=== PATIENT | male | born 1940 | race Caucasian/White ===

== ENCOUNTER → 2017-04-09 | Outpatient (CLI) | payer OTHER, MEDICARE | LOC: CIMAGING 13:05 | PROVIDERS: ATTEND Internal Medicine | DX: M53.3 Sacrococcygeal disorders, not elsewhere classified (principal); M48.07 Spinal stenosis, lumbosacral region; M25.78 Osteophyte, vertebrae; N40.1 Benign prostatic hyperplasia with lower urinary tract symptoms; K59.00 Constipation, unspecified | CPT/HCPCS: 72192-PO ==

== ENCOUNTER → 2018-01-22 | Outpatient (CLI) | payer OTHER, MEDICARE | LOC: CIMAGING 13:33 | PROVIDERS: ATTEND Internal Medicine | DX: J98.11 Atelectasis (principal) | CPT/HCPCS: 36415-PO; 71046-PO; 80053-PO; 84443-PO; 85025-PO ==

== ENCOUNTER → 2018-05-22 | Outpatient (CLI) | payer OTHER, MEDICARE | LOC: BRMIMAGING 13:18 | PROVIDERS: ATTEND Internal Medicine | DX: Z13.820 Encounter for screening for osteoporosis (principal); M81.0 Age-related osteoporosis without current pathological fracture; S32.9XXA Fracture of unspecified parts of lumbosacral spine and pelvis, initial encounter for closed fracture; E11.9 Type 2 diabetes mellitus without complications; J44.9 Chronic obstructive pulmonary disease, unspecified ==

== ENCOUNTER → 2018-09-19 | Outpatient (CLI) | payer OTHER, MEDICARE | LOC: CLAB 13:30 → EDSTATUS 13:39 → CIMAGING 13:39 | PROVIDERS: ATTEND Internal Medicine | DX: J44.9 Chronic obstructive pulmonary disease, unspecified (principal) | CPT/HCPCS: 71046-PO ==